=== PATIENT | female | born 1985 | race Caucasian/White ===

== ENCOUNTER → 2017-12-18 10:31 | Outpatient (CLI) | payer BC, SELFPAY ==
[2017-12-18 11:42] LABS: Alanine Aminotransferase 19 U/L (12-78); Albumin Level 4.2 gm/dL (3.4-5.0); Albumin/Globulin Ratio 1.5 (1.1-1.8); Alkaline Phosphatase 74 U/L (46-116); Anion Gap 12.1 mEq/L (5-15); Aspartate Amino Transferase 10 U/L (15-37); Bilirubin,Total 0.4 mg/dL (0.2-1.0); Blood Urea Nitrogen 6 mg/dL (7-18); Calcium 9.4 mg/dL (8.5-10.1); Carbon Dioxide 28 mmol/L (21.0-32.0); Chloride 106 mmol/L (98-107); Creatinine,Serum 0.71 mg/dL (0.55-1.02); Estimated Glomerular Filt Rate 95 ml/min (>60); GFR (African American) 115 ML/MIN (>60); Globulin 2.8 gm/dl (1.3-3.2); Glucose 105 mg/dL (74-106); Potassium 4.1 mmoL/L (3.5-5.1); Sodium 142 mmol/L (136-145); Thyroid Stimulating Hormone 1.44 uIU/ml (0.358-3.740)
== END ==
PROVIDERS: PCP Family Medicine; Visit Provider Family Medicine
DX: F31.62 Bipolar disorder, current episode mixed, moderate (principal)
CPT/HCPCS: 36415; 80053; 84443

== ENCOUNTER → 2021-07-06 16:49 | Outpatient (CLI) | payer OTHER, SELFPAY ==
--- NOTE | 2021-07-06 17:02 | ECG_ITS ---
APPROVED REPORT Exam: Resting ECG HR:98 bpm ECG Measurements Heart Rate 98 AXES MT 122 P 74 QRSd 94 QRS 89 QT 333 T 8 QTc 388 Conclusion SINUS RHYTHM WITH SINUS ARRHYTHMIA POSSIBLE RIGHT VENTRICULAR CONDUCTION DELAY [RSR (QR) IN V1/V2] NONSPECIFIC ST & T-WAVE ABNORMALITY BORDERLINE ECG UNCONFIRMED REPORT Electronically signed by : Ted Bray MD 07/09/2021 10:33:23
== END ==
PROVIDERS: PCP Family Medicine; Visit Provider Family Medicine
DX: R00.0 Tachycardia, unspecified (principal)
CPT/HCPCS: 93005

== ENCOUNTER → 2021-07-20 12:59 | Outpatient (CLI) | payer OTHER, SELFPAY ==
--- NOTE | 2021-07-20 13:03 | CA_ITS ---
APPROVED REPORT EXAM: Comprehensive 2D, Doppler, and color-flow Echocardiogram Displayer Merchandise: Ni Villegas RDCS Ht: 5 ft 11 in Wt: 126lbs BSA: 1.73 BP: 110/68 mmHg Indications: TACHYCARDIA 2D Dimensions LVOT 1.66 cm (M/F) 1.5-2.5 M-Mode Dimensions RVDd 2.78 cm (0.9-2.6) LA Diam 2.02 cm (1.9-4.0) LVDd 3.95 cm (3.5-5.7) Ao Diam 3.03 cm (2.0-3.7) LVDs 3.28 cm (3.5-5.7) IVSd 0.47 cm (0.6-1.1) PWd 0.57 cm (0.6-1.1) EF (Teich) 35.90% FS 17.00% EDV (Teich) 67.90 mL TAPSE 1.83 (<1.7) ESV (Teich) 43.50 mL LV Diastology E Decel Time 250.00 (160-240 msec) E/A Ratio 0.7 MED E' 12.40 (< 7 cm/sec) E'/MED E' Ratio 4.39 (>14) LAT E' 16.60 (<10 cm/sec) E/LAT E' Ratio 3.28 (>14) Mitral Valve MV E Max Michele. 54.00 (40-130 cm/s) MV A Velocity 76.00 (40-130 cm/s) E/A Ratio 0.72 MV Decel. Time 250.00 (160-240 ms) MV PHT 73.00 ms Left Ventricle Left atrium normal size, left ventricle is normal size, there is no concentric left ventricular hypertrophy, estimated ejection fraction 55% with no regional wall motion abnormality. Diastolic parameters are within normal range. Right Ventricle Right atrium and right ventricle are normal size and contractility. Aortic Valve Aortic valve is grossly normal and there is no aortic stenosis or aortic insufficiency. Mitral Valve Mitral valve is grossly normal, there is no mitral stenosis or mitral regurgitation. Tricuspid Valve Tricuspid valve grossly normal, there is trace tricuspid regurgitation, tricuspid regurgitation jet velocity is inadequate for calculation of the right ventricular systolic pressure. Pulmonic Valve Pulmonic valve is poorly visualized. Great Vessels Aortic root is normal size. Inferior vena cava is normal size with normal inspiratory collapse. Pericardium No significant pericardial effusion noted. Conclusion 1. Normal left ventricular size, preserved left ventricular systolic function, estimated ejection fraction 55% with no regional wall motion abnormality, diastolic parameters are within normal range. 2. Trace tricuspid regurgitation. 3. No significant pericardial effusion. 4. Inferior vena cava is normal size with normal inspiratory collapse. Electronically signed by : Juan Pelayo MD 07/21/2021 12:15:23
== END ==
PROVIDERS: PCP Family Medicine; Visit Provider Nurse Practitioner
DX: R00.0 Tachycardia, unspecified (principal)
CPT/HCPCS: 93225; 93226; 93306

== ENCOUNTER → 2022-02-11 13:57 | Outpatient (CLI) | payer OTHER, SELFPAY ==
[2022-02-11 19:00] LABS: Alanine Aminotransferase 18 U/L (12-78); Albumin Level 4.1 g/dl (3.5-5.0); Albumin/Globulin Ratio 1.8 (1.1-1.8); Alkaline Phosphatase 67 U/L (38-126); Anion Gap 13.1 mEq/L (5-15); Aspartate Amino Transferase 25 U/L (14-36); Bilirubin,Total 0.4 mg/dl (0.2-1.3); Blood Urea Nitrogen 8 mg/dl (7-17); Carbon Dioxide 26 mmol/L (22.0-30.0); Chloride 106 mmol/L (98-107); Estimated Glomerular Filt Rate 94 ml/min (>60); GFR (African American) 114 ML/MIN (>60); Globulin 2.3 g/dL (1.3-3.2); Glucose 83 mg/dl (74-100); Potassium 4.1 mmoL/L (3.5-5.1); Sodium 141 mmol/L (136-145); Total Protein,Serum 6.4 g/dl (6.3-8.2)
[2022-02-11 19:30] LABS: Thyroid Stimulating Hormone 0.89 uIU/mL (0.465-4.68)
== END ==
PROVIDERS: PCP Family Medicine; Visit Provider Family Medicine
DX: F31.9 Bipolar disorder, unspecified (principal)
CPT/HCPCS: 80053; 84443

== ENCOUNTER → 2022-09-29 16:15 | Outpatient (CLI) | payer OTHER, SELFPAY ==
[2022-09-29 10:59] LABS: Amphetamine/Metha Screen,Urine Negative ng/ml (<1000); Barbiturates Screen,Urine Negative ng/ml (<200)
[2022-09-29 11:00] LABS: Benzodiazepines Screen,Urine Negative ng/ml (<200)
[2022-09-29 11:01] LABS: Cannabinoid Screen,Urine Positive ng/ml (<50); Cocaine Screen,Urine Negative ng/ml (<300)
[2022-09-29 11:02] LABS: Methadone Screen,Urine Negative ng/ml (<300)
[2022-09-29 11:03] LABS: Opiate Screen,Urine Negative ng/ml (<300); Phencyclidine Screen,Urine Negative ng/ml (<25)
== END ==
PROVIDERS: Visit Provider Nurse Practitioner Psychiatric/Mental Health
DX: Z51.81 Encounter for therapeutic drug level monitoring (principal)
CPT/HCPCS: 80305

== ENCOUNTER → 2022-10-04 13:28 | Outpatient (CLI) | payer OTHER, SELFPAY ==
[2022-10-06 08:19] LABS: FSH 9.4 mIU/mL (.); LH 14.6 mIU/mL (.)
== END ==
PROVIDERS: PCP Family Medicine; Visit Provider Family Medicine
DX: E34.9 Endocrine disorder, unspecified (principal)
CPT/HCPCS: 83001; 83002

== ENCOUNTER → 2022-10-25 12:00 | Outpatient (CLI) | payer OTHER, SELFPAY | PROVIDERS: PCP Podiatrist; Visit Provider Podiatrist | DX: D49.2 Neoplasm of unspecified behavior of bone, soft tissue, and skin (principal) ==

== ENCOUNTER → 2022-12-13 08:51 | Outpatient (CLI) | payer OTHER, SELFPAY ==
[2022-12-13 18:42] LABS: Alanine Aminotransferase 19 U/L (12-78); Albumin Level 4.2 g/dl (3.5-5.0); Albumin/Globulin Ratio 1.8 (1.1-1.8); Alkaline Phosphatase 78 U/L (38-126); Anion Gap 10.2 mEq/L (5-15); Aspartate Amino Transferase 23 U/L (14-36); Bilirubin,Total 0.3 mg/dl (0.2-1.3); Blood Urea Nitrogen 6 mg/dl (7-17); Calcium 9.1 mg/dl (8.4-10.2); Carbon Dioxide 28 mmol/L (22.0-30.0); Chloride 106 mmol/L (98-107); Estimated Glomerular Filt Rate 94 ml/min (>60); GFR (African American) 113 ML/MIN (>60); Globulin 2.4 g/dL (1.3-3.2); Glucose 92 mg/dl (74-100); Potassium 4.2 mmoL/L (3.5-5.1); Sodium 140 mmol/L (136-145); Total Protein,Serum 6.6 g/dl (6.3-8.2)
[2022-12-13 19:11] LABS: Thyroid Stimulating Hormone 1.07 uIU/mL (0.465-4.68)
== END ==
PROVIDERS: PCP Family Medicine; Visit Provider Family Medicine
DX: F31.9 Bipolar disorder, unspecified (principal)
CPT/HCPCS: 80053; 84443

== ENCOUNTER 2023-09-12 10:28 | Outpatient (CLI) | payer OTHER, SELFPAY ==
[2023-09-12 18:20] LABS: Microscopic, Urine URINE MICROSCOPIC (MICROSCOPIC)
[2023-09-12 19:10] LABS: Appearance,Urine CLEAR (Clear); Bilirubin,Urine Negative (Negative); Blood, Urine TRACE-I (Negative); Color,Urine YELLOW (Yellow); Glucose,Urine (UA) TRACE (Negative); Ketones,Urine Negative (Negative); Leukocyte Esterase,Urine TRACE (Negative); Nitrate,Urine POSITIVE (Negative); PH,Urine 6.5 (5.0-8.5); Protein,Urine TRACE (Negative)
[2023-09-12 19:30] LABS: Bacteria,Urine Trace /lpf; RBC,Urine Occasional #/hpf (0-3)
[2023-10-04 11:49] LABS: Ammonium acid urate 0; Ca oxalate dihydrate 95; Calcium bilirubinate 0; Calcium carbonate 0; Calcium phosphate 5; Cholesterol 0; Composition PERCENTAGE; Magnesium ammon phos 0; Size 1X1; Sodium acid urate 0; Uric acid dihydrate 0
[2023-10-04 11:50] LABS: Photo SCANNED IMAGE
== END 2023-09-12 23:59 | disposition home or self-care (01) ==
LOC: LAB.DROPOF 09-13 10:28
PROVIDERS: PCP Family Medicine; Visit Provider Family Medicine
DX: N20.2 Calculus of kidney with calculus of ureter; F31.9 Bipolar disorder, unspecified
CPT/HCPCS: 81001; 82370; 87086

== ENCOUNTER 2023-09-20 10:36 | Outpatient (CLI) | payer OTHER, SELFPAY ==
[2023-09-21 12:00] LABS: HIV (1&2) Antibody Rapid NONREACTIVE (NONREACTIVE)
[2023-09-22 08:24] LABS: HCV Ab Non Reactive (Non Reactive); Hepatitis B Surface Antigen Negative (Negative)
[2023-09-22 11:28] LABS: Rapid Plasma Reagin Ab Titer Non Reactive titer (NonRea<1:1)
== END 2023-09-20 23:59 | disposition home or self-care (01) ==
LOC: LAB.DROPOF 09-21 10:36
PROVIDERS: PCP Obstetrics & Gynecology; Visit Provider Obstetrics & Gynecology
DX: Z20.2 Contact with and (suspected) exposure to infections with a predominantly sexual mode of transmission (principal)
CPT/HCPCS: 86803; 86703; 86593; 87340

== ENCOUNTER 2023-09-28 09:49 | Outpatient (CLI) | payer OTHER, SELFPAY ==
--- NOTE | 2023-09-28 09:50 | US_ITS ---
PROCEDURE: US TRANSVAGINAL CLINICAL INDICATION: iud in place strings not visable, enlarged uterus COMPARISON: No exams were available for comparison FINDINGS: Transvaginal sonographic images of the pelvis were obtained. UTERUS: 8.5cm x 4.8 cmx 4.1cm anteverted with a combined endometrial thickness of 3.5mm. There is an IUD within the uterine cavity in the correct position. LEFT OVARY: 2.6 cmx2.0cmx2.9cm with a volume of 7.8ml. There is a follicle measuring 1.6 cm x 1.6 x 1.5 cm RIGHT OVARY: 1.8 cmx 2.4cmx1.7 cm with a volume of 3.7ml. Both ovaries are seen and appear normal. Doppler flow to both ovaries are seen. There is no fluid in the cul-de-sac. IMPRESSION: 1. Anteverted uterus normal in shape and size. The endometrium is thin. 2. Within the endometrium there is an IUD that appears to be in the correct position. 3. Both ovaries are seen and appear normal. There is a 1.6 cm follicle in the left ovary. 4. No fluid in the cul-de-sac. Dictated by: Sudhir Butcher MD 09/29/2023 07:53 Sudhir Butcher MD in OV 09/29/2023 07:53
== END 2023-09-28 23:59 | disposition home or self-care (01) ==
LOC: RAD 09:50
PROVIDERS: PCP Family Medicine; Visit Provider Obstetrics & Gynecology
DX: Z97.5 Presence of (intrauterine) contraceptive device (principal); N85.2 Hypertrophy of uterus
CPT/HCPCS: 76830

== ENCOUNTER 2024-03-19 09:05 | Outpatient (CLI) | payer OTHER, SELFPAY ==
[2024-03-19 19:01] LABS: T4 (Thyroxine) 7.8 ug/dl (5.53-11.0)
[2024-03-19 19:15] LABS: Thyroid Stimulating Hormone 0.56 uIU/mL (0.465-4.68)
== END 2024-03-19 23:59 | disposition home or self-care (01) ==
LOC: LAB.DROPOF 03-20 09:06
PROVIDERS: PCP Nurse Practitioner Acute Care; Visit Provider Nurse Practitioner Acute Care
DX: E34.9 Endocrine disorder, unspecified (principal)
CPT/HCPCS: 84436; 84443

== ENCOUNTER 2024-03-21 14:30 | Outpatient (CLI) | payer OTHER, SELFPAY ==
[2024-03-21 19:30] LABS: RPR W/RFX Titers Nonreactive (Nonreactive)
[2024-03-21 21:31] LABS: HIV Combo Retest NEGATIVE (Negative)
[2024-03-23 06:35] LABS: HBsAg Screen Negative (Negative); HCV Ab Non Reactive (Non Reactive); Hep A Ab, IGM Negative (Negative); Hep B Core Ab, IgM Negative (Negative)
[2024-03-26 09:13] LABS: HSV-1 DNA Negative (Negative); HSV-2 DNA Negative (Negative)
[2024-03-27 10:22] LABS: Mycoplasma genitalium, NAA Negative (Negative); Neisseria gonorrhoeae, NAA Negative (Negative); Trich vag by NAA Negative (Negative)
== END 2024-03-21 23:59 | disposition home or self-care (01) ==
LOC: LAB.DROPOF 03-22 12:37
PROVIDERS: PCP Nurse Practitioner; Visit Provider Nurse Practitioner
DX: Z11.3 Encounter for screening for infections with a predominantly sexual mode of transmission (principal)
CPT/HCPCS: 80074; 86592; 87491; 87529; 87563; 87591; 87661

== ENCOUNTER 2024-04-26 11:55 | Outpatient (CLI) | payer OTHER, SELFPAY ==
--- NOTE | 2024-04-26 12:18 | ECG_ITS ---
APPROVED REPORT Exam: Resting ECG HR:69 bpm ECG Measurements Heart Rate 69 AXES AL 131 P 74 QRSd 93 QRS 86 QT 382 T -43 QTc 401 Conclusion SINUS RHYTHM POSSIBLE RIGHT VENTRICULAR CONDUCTION DELAY [RSR (QR) IN V1/V2] ST DEVIATION AND MODERATE T-WAVE ABNORMALITY, CONSIDER ANTEROLATERAL ISCHEMIA [-0.1+ mV T-WAVE IN V3-V6] ST DEVIATION AND MODERATE T-WAVE ABNORMALITY, CONSIDER INFERIOR ISCHEMIA [-0.1+ mV T-WAVE IN II/aVF] ABNORMAL ECG UNCONFIRMED REPORT Electronically signed by : Ted Bray MD 04/29/2024 08:53:06
[2024-04-26 12:35] LABS: Basophils % 0.4 % (0.1-2.0); Eosinophils # 0.1 K/mm3 (0.0-0.4); Eosinophils % 1.5 % (0.1-12.0); Hematocrit 35.8 % (37.0-47.0); Hemoglobin 11.9 g/dL (12.2-16.2); Lymphocytes # 1.9 K/mm3 (0.7-4.5); Lymphocytes % 26.6 % (10-50); Mean Corpuscular HGB Conc 33.2 g/dL (31.8-35.4); Mean Corpuscular Volume 84.2 fl (81-99); Mean Platelet Volume 9.7 fl (7.4-10.4); Monocytes # 0.4 K/mm3 (0.1-1.0); Monocytes % 5.6 % (1.7-9.3); Neutrophils # 4.8 K/mm3 (1.8-7.8); Neutrophils % 65.5 % (37.0-80.0); Platelet Count 249 K/mm3 (142-424); Red Blood Count 4.25 M/mm3 (4.20-5.40); Red Cell Distribution Width 12.9 % (11.5-17.5); White Blood Count 7.3 K/mm3 (4.8-10.8)
[2024-04-26 12:40] LABS: Albumin Level 4.6 g/dl (3.5-5.0); Chloride 109 mmol/L (98-107); Potassium 3.6 mmoL/L (3.5-5.1); Sodium 140 mmol/L (136-145)
[2024-04-26 12:43] LABS: Alanine Aminotransferase 21 U/L (12-78); Albumin/Globulin Ratio 2.1 (1.1-1.8); Alkaline Phosphatase 83 U/L (38-126); Anion Gap 8.6 mEq/L (5-15); Aspartate Amino Transferase 26 U/L (14-36); Bilirubin,Total 0.2 mg/dl (0.2-1.3); Blood Urea Nitrogen 5 mg/dl (7-17); Carbon Dioxide 26 mmol/L (22.0-30.0); Estimated Glomerular Filt Rate 80 ml/min (>60); GFR (African American) 97 ML/MIN (>60); Globulin 2.2 g/dL (1.3-3.2); Total Protein,Serum 6.8 g/dl (6.3-8.2)
[2024-04-26 12:44] LABS: Glucose 98 mg/dl (74-100)
[2024-04-26 13:05] LABS: HCG,Quantitative < 2 mIU/ml (0-5.42)
== END 2024-04-26 23:59 | disposition home or self-care (01) ==
LOC: PREOP 11:56
PROVIDERS: PCP Family Medicine; Visit Provider Obstetrics & Gynecology
DX: R94.31 Abnormal electrocardiogram [ECG] [EKG] (principal); R10.2 Pelvic and perineal pain
CPT/HCPCS: 80053; 84702; 85025; 93005

== ENCOUNTER 2024-05-01 09:23 | Outpatient (CLI) | payer OTHER, SELFPAY ==
--- NOTE | 2024-05-01 09:27 | CA_ITS ---
APPROVED REPORT EXAM: Comprehensive 2D, Doppler, and color-flow Echocardiogram Slat Basket Maker Machine: Katie Carlson RVT Ht: 5 ft 11 in Wt: 142lbs BSA: 1.82 BP: 120/79 mmHg Indications: ABN EKG,PRE-OP,CP,? [facility]AN[place] SYNDROME M-Mode Dimensions RVDd 2.50 cm (0.9-2.6) LA Diam 2.43 cm (1.9-4.0) LVDd 3.66 cm (3.5-5.7) LVDs 2.69 cm (3.5-5.7) IVSd 0.63 cm (0.6-1.1) PWd 0.47 cm (0.6-1.1) EF (Teich) 52.70% FS 26.50% EDV (Teich) 56.60 mL TAPSE 2.67 (<1.7) ESV (Teich) 26.80 mL LV Diastology E Decel Time 150 (160-240 msec) E/A Ratio 1.0 Aortic Valve AG Index 1.46 cm2/m2 AoV Peak Michele. 121.0 (50-130 cm/s) AO Peak GR. 5.90 mmHg AO Mean GR. 3.60 (<5 mmHg) AO VTI 23.5 (18-25 cm) AG (VTI) 2.73 (2.5-4.5 cm2) Mitral Valve MV E Max Michele. 60.0 (40-130 cm/s) MV A Velocity 63.0 (40-130 cm/s) E/A Ratio 0.95 MV PHT 44.0 ms Pulmonary Valve PV Peak Velocity 92.0 (50-150 cm/s) Tricuspid Valve TR P. Velocity 274.00 cm/s RAP Estimate 10.00 mmHg RVSP 40.00 mmHg Left Ventricle The left ventricle is normal size. The left ventricular systolic function is normal. The left ventricular ejection fraction is within the normal range. There is normal left ventricular wall thickness. There is normal LV segmental wall motion. The left ventricular diastolic function is normal. LVEF is 55%. Right Ventricle The right ventricle is normal size. The right ventricular systolic function is normal. Atria The left atrium size is normal. The right atrium size is normal. The interatrial septum is not well-visualized. Aortic Valve The aortic valve is normal in structure. There is no aortic valvular stenosis. The aortic valve opens well. Mitral Valve The mitral valve is normal in structure. Trace mitral regurgitation. No evidence of mitral valve stenosis. Tricuspid Valve Tricuspid valve is grossly normal in structure and function. Trace tricuspid regurgitation. There is insufficient TR jet to estimate RVSP. Pulmonic Valve The pulmonary valve is normal in structure. Trace pulmonic regurgitation. Great Vessels The aortic root is normal in size. The ascending aorta is normal in size. IVC is normal in size and collapses >50% with inspiration. Pericardium There is no pericardial effusion. Other Information Study Quality: Fair Conclusion Normal biventricular systolic function. No significant valvular stenosis or regurgitation. Electronically signed by : Shakira Das MD 05/14/2024 12:25:54
== END 2024-05-01 23:59 | disposition home or self-care (01) ==
LOC: RT 09:24
PROVIDERS: PCP Family Medicine; Visit Provider Physician Assistant
DX: Z01.810 Encounter for preprocedural cardiovascular examination (principal); R07.9 Chest pain, unspecified; R94.31 Abnormal electrocardiogram [ECG] [EKG]; Z82.49 Family history of ischemic heart disease and other diseases of the circulatory system
CPT/HCPCS: 93306

== ENCOUNTER 2024-05-02 12:53 | Outpatient (CLI) | payer OTHER, SELFPAY ==
--- NOTE | 2024-05-02 | CA_ITS ---
APPROVED REPORT Exam: Exercise Treadmill Technologist: Ngozi Chavez Ht: 5 ft 11 in Wt: 142 lbs BSA: 1.82 m2 HR: 84 bpm BP: 119/77 mmHg Medical History Medications: Auvelity, Vistaril, Lamictal, Mirena, Latuda, Oxazepam Allergies: Iodinated Contrast Cardiac Risk Factors: FHX of CAD Stress Test Details Test: Exercise stress testing was performed using a Ciro protocol. HR Resting HR: 84 bpm Max Heart Rate (APMHR): 181 bpm Max HR Achieved: 167 bpm Target HR (85% APMHR): 154 bpm % of APMHR: 92 Recovery HR: 100 bpm HR response to stress: Normal HR response to stress BP Resting BP: 119.0/77.0 mmHg Max BP: 164.0/83.0 mmHg Recovery BP: 121.0/76.0 mmHg BP response to stress: Normal blood pressure response to stress. ECG Resting ECG: NSR Stress EC.[address] depression Clinical Exercise duration: 4:50 min Exercise capacity: 7.1 METs Overall Exercise Capacity for Age: Fair Stress ECG Conclusion The patient was able to exercise for a total of 4 minutes, 50 seconds. She achieved a total of 7.1 METS. Fair exercise capacity compared to age and sex matched peers. Ectopy: None ST changes: 1.[address] depression. Conclusion: Fair exercise capacity. ECG changes suggestive of ischemia at peak stress. Myoview images are reported separately. Electronically signed by : Shakira Das MD 05/05/2024 21:27:01
--- NOTE | 2024-05-02 12:57 | NM_ITS ---
APPROVED REPORT Exam: Nuclear Stress Test Indication: Chest pain, SOB, Fatigue, Family history Patient Location: Outpatient Stress Tech: Ngozi Chavez ND Tech:Clara HenaoCHHAYA RT(R)(N) Ht: 5 ft 11 in Wt: 140 lbs Bra Size: 34C HR: 104 bpm BP: 118/79 mmHg BSA: 1.81 m2 TID: 1.01 BMI: 19.5 History: Chest pain, SOB, Fatigue, Family history Procedure: Patient exercised on Ciro protocol 4:50 minutes and sec, resting heart rate 104 bpm, resting blood pressure 118/79 mmHg, with exercise maximum heart rate achived was 167 bpm which is 92 % of the maximum predicted heart rate and blood pressure was 156/81 mmHg. Test was stopped due to SOB. Patient denied any complaint of chest pain. Patient has Average exercise capacity, achieved 7.1 METs of workload on treadmill, the blood pressure response to exercise was Blunted. Cardiac Stress and Resting SPECT Images: Cardiac Stress and Resting SPECT images were obtained using technetium 99m Myoview 31.7 mCi stress and 10.11 mCi at rest. Resting and stress imaging in supine and prone positions demonstrate no evidence of fixed or reversible perfusion defects. Gated imaging demonstrates normal global and regional LV systolic function. LVEF is calculated at 52%. Conclusion: No evidence of fixed or reversible perfusion defects. Gated imaging demonstrates normal global and regional LV systolic function. LVEF is calculated at 52%. Of note, the patient had a blunted BP response to exercise. Electronically signed by : Shakira Das MD 05/05/2024 21:17:09
[2024-05-02] MEDS: ISOTOPE MYOVIEW (PER STUDY) 1 DOSE IV (14:49)
[2024-05-02] MEDS: SODIUM CHLORIDE 0.9% 10ML SYR (RAD ONLY) 10 ML IV ×2 (14:50)
== END 2024-05-02 23:59 | disposition home or self-care (01) ==
LOC: RAD 12:54
PROVIDERS: PCP Psychiatry & Neurology Sleep Medicine; Visit Provider Physician Assistant
DX: R07.9 Chest pain, unspecified (principal); R94.31 Abnormal electrocardiogram [ECG] [EKG]; Z82.49 Family history of ischemic heart disease and other diseases of the circulatory system
CPT/HCPCS: 78452; 93017; 93018; A9502

== ENCOUNTER 2024-07-09 11:55 | Outpatient (CLI) | payer OTHER, SELFPAY ==
[2024-07-09 13:16] LABS: Basophils % 0.2 % (0.1-2.0); Eosinophils # 0.1 Kmm3 (0.0-0.4); Eosinophils % 1.3 % (0.1-12.0); Hemoglobin 11.8 g/dL (12.2-16.2); Immature Granulocytes # 0.03 10^3uL; Immature Granulocytes % 0.4 %; Lymphocytes # 2.3 K/mm3 (0.7-4.5); Lymphocytes % 27.1 % (10-50); Mean Corpuscular HGB Conc 32.8 g/dL (31.8-35.4); Mean Corpuscular Volume 85.3 fl (81-99); Mean Platelet Volume 9.6 fl (7.4-10.4); Monocytes # 0.4 K/mm3 (0.1-1.0); Monocytes % 4.5 % (1.7-9.3); Neutrophils # 5.7 K/mm3 (1.8-7.8); Neutrophils % 66.5 % (37.0-80.0); Nucleated Red Blood Cells # 0 10^3/uL; Nucleated Red Blood Cells % 0 %; Platelet Count 314 K/mm3 (142-424); Red Blood Count 4.22 M/mm3 (4.20-5.40); Red Cell Distribution Width 12.7 % (11.5-17.5); Red Cell Distribution Width-SD 39.2 fL; White Blood Count 8.5 K/mm3 (4.8-10.8)
[2024-07-09 13:42] LABS: HCG Qualitative, Serum Negative (Negative)
[2024-07-10 09:09] LABS: Alanine Aminotransferase 9 U/L (12-78); Alkaline Phosphatase 87 U/L (38-126); Aspartate Amino Transferase 14 U/L (14-36); Bilirubin,Total 0.3 mg/dl (0.2-1.3); Calcium 8.9 mg/dl (8.4-10.2); Chloride 107 mmol/L (98-107); Glucose 83 mg/dl (74-100); Potassium 4.4 mmoL/L (3.5-5.1); Sodium 140 mmol/L (136-145)
[2024-07-10 09:11] LABS: Albumin/Globulin Ratio 1.7 (1.1-1.8); Anion Gap 8.4 mEq/L (5-15); Blood Urea Nitrogen 8 mg/dl (7-17); Carbon Dioxide 29 mmol/L (22.0-30.0); Estimated Glomerular Filt Rate 80 ml/min (>60); GFR (African American) 97 ML/MIN (>60); Globulin 2.3 g/dL (1.3-3.2); Total Protein,Serum 6.3 g/dl (6.3-8.2)
== END 2024-07-09 23:59 | disposition home or self-care (01) ==
LOC: PREOP 11:56
PROVIDERS: PCP Family Medicine; Visit Provider Obstetrics & Gynecology
DX: Z01.812 Encounter for preprocedural laboratory examination (principal)
CPT/HCPCS: 36415; 80053; 84703; 85025; 86850

== ENCOUNTER 2024-07-10 08:16 | Day surgery (SDC) | payer OTHER, SELFPAY ==
[2024-04-26 12:41] VITALS: BMI 19.0
[2024-07-10] VITALS (17 sets, daily range): BP systolic 118–133; BP diastolic 67–88; PULSE 67–110; RESP 16–24; TEMP 36.2–36.8; O2SAT 96–100
[2024-07-10] MEDS: GABAPENTIN 300MG CAPSULE 600 MG (09:22)
[2024-07-10] MEDS: LACTATED RINGERS 1000ML 1,000 ML 25 ML IV (09:23)
[2024-07-10] MEDS: ACETAMINOPHEN 500MG TAB 1000 MG PO (09:23)
--- NOTE | 2024-07-10 09:29 | EXP.ANES.CKL ---
[facility] Disclaimer: The information contained in this section may have been updated after the patient was seen, as this information can be updated by other users. Medical History Encounter for other preprocedural examination Encounter for pre-operative cardiovascular clearance Family history of ischemic heart disease Abnormal electrocardiogram [ECG] [EKG] Renal and ureteric calculus Hormone imbalance Neoplasm of skin of forearm Attention deficit disorder (ADD) in adult Sinus tachycardia Bipolar depression Anxiety IUD (intrauterine device) in place Surgical History (Updated 07/09/24 @ 12:37 by Rosita Mckay RN) H/O breast augmentation History of incision and drainage History of wisdom tooth extraction History of tonsillectomy Family History Other Family history of breast cancer Heart attack Social History Smoking Status: Never smoker second hand exposure: No alcohol intake: never counseling given: No substance use type: marijuana and other details: edibles counseling given: No current occupational status: unemployed Travel in the last 8 weeks?: None adopted: No caregiver/support person: Yes (for her kids) household members: spouse housing: house marital status: number of children: 5 number of grandchildren: 0 education level: other details: she went to [employer]; for a semester; didn't do well attendance [employer]; and quit Hx Recent Travel: Yes ([place] for Spring break with her kids) out of state: Yes out of country: No sexually active: Yes are you practicing safe sex: Yes caffeine: Yes physical activity: none brandi/hoahaoism: None special brandi needs: No working smoke detector in home: Yes fire extinguisher in home: Yes carbon monox detector in home: Yes firearms in home: Yes firearms unloaded and locked: Yes do you feel safe at home: Yes victim of physical abuse: No victim of emotional abuse: No victim of sexual abuse: No would you like helpful sources: No Have you lived/traveled outside US in past 30 days?: No Contact w/someone who lives/traveled outside US past 30 days?: No Exposure to someone with infectious disease in past 14 days?: No Do you have a fever (greater than 100.4 F or 38 C)?: No Have you tested positive for COVID-19?: No Exposed to someone with COVID-19 in past 14 days?: No Do you have a sore throat?: No Do you have a cough?: No Do you have any weakness?: No Do you have any diarrhea?: No Are you experiencing any unusual bleeding?: No Do you have any muscle aches/pain?: No Do you have any abdominal pain?: No Are you experiencing loss of taste or smell?: No [facility] Anesthesia Checklist Patient Identification Patient Identification: Arm Band Structural Data Admitted From: Home Planned Operative Procedure/s: Total Vaginal Hysterectomy Consent for Planned Operative Procedure(s) Verified: Yes Verified Documents: Surgical Consent and History and Physical NPO Status Verified Time NPO: 00:00 Additional verifications Anesthesia Reactions: No Airway Assessment Mallampati Score:: Class II C-Spine Mobility Assessed: Yes TMJ Mobility Assessed: Yes Dentition: Good Dentition Neurological Assessment Level of Consciousness: Awake, Alert and Appropriate Anesthesia Plan Anesthesia Risk discussed: Yes Anesthesia Plan: Verified ASA Class: II Anesthesia Type: General
[2024-07-10] MEDS: METRONIDAZ/SOD CHL 500 MG/100 ML PIGGYBACK 100 MG IV (09:45)
[2024-07-10] MEDS: CEFAZOLIN SODIUM 2 GM in 0.9 % SODIUM CHLORIDE 100 ML IV (09:50)
[2024-07-10] MEDS: SODIUM CHLORIDE IRRIG SOLUTION 3,000 ML 25 ML IR (10:05)
[2024-07-10] MEDS: METHYLENE BLUE 0.5% 10ML AMPULE 50 MG IV (10:05)
[2024-07-10] MEDS: LIDOCAINE 1% W/EPI 1:100,000 20ML VIAL 20 ML (10:05)
--- NOTE | 2024-07-10 11:34 | P.OP_ITS ---
Date of procedure: 07/10/24 Pre-op Diagnosis:: 1. Abnormal uterine bleeding 2. Heavy uterine bleeding 3. Prolonged menses 4. Failed medical management 5. Anxiety Post-op Diagnosis:: 1. Abnormal uterine bleeding 2. Heavy uterine bleeding 3. Prolonged menses 4. Failed medical management 5. Anxiety Procedure performed:: 1. Total vaginal hysterectomy 2. Bilateral salpingectomy 3. Cystoscopy Surgeon:: Keisha Irene DO Employee Placement Specialist(s):: Sudhir Butcher MD [employer]:: Kanu Chapa Anesthesia: GETA Estimated blood loss (mL): 50 Clinical Note:: Steffany Lozoya is a 38-year-old -0-1-5 who presented for definitive sorenson rgical management abnormal uterine bleeding, heavy uterine bleeding, prolonged menses. She has previously failed medical management and declined any additional hormonal use. Transvaginal ultrasound was within normal limits Operative findings:: Uterine EUA was significant for 8wk size uterus with regular borders at the fundus. Grade 3 uterine descent was appreciated. No gross adnexal masses were appreciated. Operative note:: Pt was taken back to the OR where GETA was obtained without difficulty. SCDs were placed and found to be working. The patient was placed in dorsal lithotomy position using yellowfin stirrups. The vagina was prepped and draped in the normal sterile fashion. An in and out catheter was used to drain the bladder and 20 mL of methylene blue normal saline were inserted into the bladder. A weighted speculum and [place] were used to visualize the cervix. Two Torres tenaculums were used to grasp the anterior and posterior ectocervix. Local with epinephrine was used to inject circumferentially around the cervicovaginal junction to better hydrodissect and delineate the planes as well as for added hemostasis. A scalpelwas used to make a circumferential incision. A raytec was used to bluntly dissect the paracervical fascia from the cervix off the vaginal mucosa. Metzenbaum scissors and pickups were used to enter the colpotomy posteriorly and a long weighted speculum was placed. Abdominal entry was confirmed by the presence of the ovary and omentum. The left uterosacral ligament was grasped with a Glenner clamp, cut, and suture ligated with 0- Vicryl. This was tagged for later incorporation to the cuff. This process was repeated on the contralateral side. The anterior vaginal tissue was further dissected off the cervix. Pickups and Metzenbaum scissors were used to make the anterior colpotomy. A [place] retractor was placed. Entry to the abdominal cavity was confirmed with the presence of omentum and the left ovary was visualized. The Enseal was used to dissect the broad ligament down the lateral aspect of the uterine body on the left side. The cardinal ligaments and uterine vessels were identified bilaterally, grasped with the Enseal, coagulated and transected. This process was repeated on the right. The utero-ovarian ligament was clamped, coagulated and transected on the left. At this time there was only a very small amount of the broad ligament and the round ligament noted to be attached on the right. The Enseal was used to take this down. The uterus was free and removed from the vagina, passed off the operative field and sent to pathology for evaluation. The right fallopian tube was grasped with an Allis. A sponge stick was placed to create a safe distance from the bowel and the Enseal was used to transect the mesosalpinx. Hemostasis noted. Fallopian tube passed off the operative field. This process was repeated with the left fallopian tube and the tube was passed off the field for further evaluation by pathology. The posterior peritoneum was fixed to the posterior vaginal cuff with a running locking 0 Vicryl stitch. 0-PDS was used to place a Purcell stitch for the culdoplasty, incorporating the bilateral uterosacral ligaments. The anterior peritoneum was grasped with an Rosario clamp and pursestringed closed. The vaginal cuff was then closed with 0 Vicryl in a running locking fashion. Purcell culdoplasty was tied to suspend the apex of the vagina. Hemostasis was noted. Cystoscopy Cystoscopy was performed with a 70 degree cystoscope and distended with normal saline. Inspection of the bladder showed a normal-looking, blue dyed, smooth bladder mucosa with no evidence of injury, suture, puckering, or other abnormalities.? Both ureteral meatuses were visualized and were noted to be expelling urine in routine fashion.? Air bubble was noted at the dome. Cystoscope was removed. Sponge, instrument and needle counts were correct x3, per nursing. The patient was awakened from general anesthesia and transferred to the PACU in stable condition. Condition: stable Disposition: same day Specimens:: Uterine body, cervix, bilateral fallopian tubes Complications:: None
--- NOTE | 2024-07-10 11:40 | P.PNANES_ITS ---
[facility] Anesthesia Record Part I Anesthesia Record I Intake, IV Amount: 900 Hydration: Adequate Estimated blood loss (mL): 50 Urine output (mL): 0 Blood Products used (#): none Blood Pressure: 123/72 SaO2: 96 Pulse Rate: 101 Airway Patency: Patent Respiratory Rate: 24 Temperature: 98.1 F Patient is:: Drowsy and Stable Stable to PACU at:: 11:30
[2024-07-10] MEDS: MORPHINE 2MG/ML SYRINGE 1 MG IV ×3 (12:00→12:10)
[2024-07-10] MEDS: HYDROMORPHONE 2MG/ML SYRINGE 1 MG IV (12:30)
--- NOTE | 2024-07-10 17:05 | SUR.PHASEII ---
[id number]- Dr. Butcher notified the pt was able to void 300mls and would like to go home. T.O per Dr. Butcher to D/C the pt home
--- NOTE | 2024-07-10 19:21 | EXP.ACUTE.PN ---
Subjective *Date: 07/10/24 *Time: 19:21 Interval history: We were planning on she was unable to void postsurgery and as result of that we were planning to keep her overnight with a Blas catheter. However after few hours in recovery she was able to void and requested to go home. Medical Exam Vital signs and Labs for Last 24 Hours: Vital Signs Temp Pulse Pulse Resp BP BP Pulse Ox 07/10/24 14:35 67 16 122/88 99 07/10/24 14:03 88 18 118/71 100 07/10/24 13:35 98 H 16 121/74 100 07/10/24 13:05 98 H 18 133/81 100 07/10/24 12:50 88 16 128/76 100 07/10/24 12:35 97.1 F L 100 H 18 131/85 100 07/10/24 12:30 98.2 F 100 H 18 97 07/10/24 12:20 98.2 F 102 H 18 99 07/10/24 12:10 98.2 F 101 H 18 125/82 99 07/10/24 12:00 98.2 F 108 H 18 121/67 98 07/10/24 11:50 98.2 F 110 H 18 129/77 97 07/10/24 11:44 98.1 F 101 H 24 123/72 07/10/24 11:40 98.2 F 109 H 18 125/73 97 07/10/24 11:30 98.2 F 107 H 18 123/72 96 07/10/24 09:24 97.4 F L 75 17 121/69 97 O2 Del Method 07/10/24 14:35 Room Air 07/10/24 14:03 Room Air 07/10/24 13:35 Room Air 07/10/24 13:05 Room Air 07/10/24 12:50 Room Air 07/10/24 12:35 Room Air 07/10/24 12:30 Room Air 07/10/24 12:20 Room Air 07/10/24 12:10 Room Air 07/10/24 12:00 Room Air 07/10/24 11:50 Room Air 07/10/24 11:44 07/10/24 11:40 Room Air 07/10/24 11:30 Room Air 07/10/24 09:24 Room Air Intake and Output 07/10/24 07/10/2425 03:59 11:59 19:59 Intake Total 900 / 900 Balance 900 / 900 Intake: Intake, Total IV Amount 900 / 900 I & O for Labs for Last 24 Hours: Intake & Output 07/08/24 07/09/24 07/10/24 07/11/24 11:59 11:59 11:59 11:59 Intake Total 900 / 900 Balance 900 / 900 Assessment and Plan *Assessment and plan (1) Postoperative urinary retention: Status: Acute Category: Medical Code(s): N99.89 - Other postprocedural complications and disorders of genitourinary system; R33.8 - Other retention of urine Plan She was not able to initially void postoperatively. We had planned to admit her overnight for catheterization as necessary. However she was able to spontaneously void and felt well. She requested to go home and as a result of that we are sending her home.
--- NOTE | 2024-07-10 19:31 | SUR.PHASEII ---
Dr. Butcher notifed pt was able to void and would really like to go home. T.O per Dr. Butcher to D/C the pt home
--- NOTE | 2024-07-11 08:20 | P.PNANES_ITS ---
[facility] Anesthesia Record Part II Anesthesia Record Part II Discharge Time: 17:23 Destination: Surgical Day Care (OP Surgery) PACU nurse assessment reviewed?: Yes Patient Condition:: Good Anesthesia Complications:: None Swallowing reflex intact?: Yes Airway Patency: Patent Cyanosis?: No Blood Pressure: 130/77 SaO2: 96 Respiratory Rate: 18 Pulse Rate: 101 Temperature: 98.2 F Mental Status: Alert & Oriented Pain level:: 0 Nausea and/or vomitting:: None Intake, IV Amount: 0 Hydration: Adequate
[2024-07-11 08:21] VITALS: BP 130/77; PULSE 101; RESP 18; TEMP 36.8; O2SAT 96
== END 2024-07-10 17:23 | disposition home or self-care (01) ==
PROVIDERS: PCP Nurse Practitioner; Visit Provider Obstetrics & Gynecology
PROC: (CPT 58262; principal; 2024-07-10 09:45)
DX: N93.9 Abnormal uterine and vaginal bleeding, unspecified (principal); N84.1 Polyp of cervix uteri; N88.8 Other specified noninflammatory disorders of cervix uteri; N99.89 Other postprocedural complications and disorders of genitourinary system; R33.8 Other retention of urine; F41.1 Generalized anxiety disorder; Z97.5 Presence of (intrauterine) contraceptive device; Z91.041 Radiographic dye allergy status; Z79.899 Other long term (current) drug therapy
CPT/HCPCS: 58262; J0690; J1100; J1171; J1596; J1885; J2250; J2270; J2405; J3010; J7120

== ENCOUNTER 2024-09-24 11:30 | Outpatient (CLI) | payer OTHER, SELFPAY ==
[2024-09-24 18:15] LABS: Hepatitis C Ab Qual. W/ RFX NEGATIVE (Negative)
[2024-09-25 11:12] LABS: Hepatitis B Surface Antigen Negative (Negative)
--- OUTSIDE RECORDS SUMMARY | 2024-09-25 11:56 | XMS_ITS | Clinical Summary ---
Author Organization Healthcare Address [address] [place] [address] Care Team Providers Care Food Packer Name Role Phone Asim Loza MD Primary Care Provider [phone] Jeanie Guzman LEATHER FITTER Unavailable [phone] Padma Vazquez RN Unavailable Unavailable Lisha Contreras RN Unavailable Unavailable Ihsan Parks MD Unavailable Family History Medical History Relation Name Comments Coronary artery disease Father Cataracts Other 1 Macular degeneration Other 2 Aortic aneurysm Paternal Grandfather Coronary artery disease Paternal Grandfather Relation Name Status Comments Father Other 1 Other 2 Paternal Grandfather Social History Tobacco Use Types Packs/Day Years Used Date Smoking Tobacco: Never Alcohol Use Standard Drinks/Week Comments Yes 0 (1 standard drink = 0.6 oz pur e alcohol) Comments Unknown Sex and Gender Information Value Date Recorded Sex Assigned at Not on file Legal Sex Female 8:19 PM EDT Gender Identity Not on file Sexual Orientation Not on file Last Filed Vital Signs Vital Sign Reading Time Taken Comments Blood Pressure - - Pulse - - Temperature - - Respiratory Rate - - Oxygen Saturation - - Inhaled Oxygen Concentration - - Weight 50.4 kg (111 lb 1.8 oz) 01/01/2016 12:37 PM EST Height 176.9 cm (5' 9.65 ) 01/01/2016 12:[address] Body Mass Index 16.11 01/01/2016 12:37 PM EST Plan of Treatment Not on file Care Teams Food Packer Relationship Specialty Start Date End Date Asim Loza MD [address] [place] [address] PCP - General 06/26/20 Jeanie Guzman APRN [address] [place] [address] Nurse Practitioner Internal Medicine 09/14/21 Padma Vazquez, RN [facility] Registered Nurse Cardiology 09/14/21 Lisha Contreras RN [facility] Registered Nurse 11/08/21 Ihsan Parks MD [address] [place] [address] Consulting Physician Pediatric Cardiology 12/16/21
--- OUTSIDE RECORDS SUMMARY | 2024-09-25 11:56 | XMS_ITS | Clinical Summary ---
Author Organization [facility] Address [address] [place] [address] Phone Care Team Providers Care Polisher Implant Name Role Phone Unavailable Primary Care Provider Unavailabl e Allergies Active Allergy Reactions Criticality Noted Date Comments Adhesive Other (See Comments) 11/30/2016 [place] skin, she does okay with tegaderm Iodine Anaphylaxis High 03/25/[address] Medications * This document contains information received from the source organization and may not represent a complete record from that organization. cetirizine (ZYRTEC) 10 mg Oral Tablet Take by mouth daily. Active minocycline (MINOCIN;DYNACIN ) 100 mg Oral Capsule Take 100 mg by mouth daily. Active ALPRAZolam (XANAX) 0.5 mg Oral Tablet Take 0.25 mg by mouth 2 times daily. Active Active Problems Patient Care Coordination No te Formatting of this note migh t be different from the original. 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 Scar adherent 05/28/2018 Facial abscess 11/30/2016 delivery 10/12/2011 Immunizations Immunization Administration Dates Next Due Influenza Seasonal Injectable PF 12/21/2013 Influenza Vaccine Quadrivalent PF 12/02/2016 Tdap 10/12/2011 Surgical History Surgery Date Site/Laterality Comments TONSILLECTOMY CYST REMOVAL from right wrist , age 15 FACIAL RECONSTRUCTION SURGERY 11/30/2016 N/A incision and drainge chin abscess; Surgeon: Josh Fox MD; Location: ED MAIN OR; Service: ENT URETEROSCOPY 09/05/2017 Ureter/Right CYSTOSCOPY RIGHT URETEROSCOPY,RIGHT URETER BALLOON DILATION STENT INSERTION BASKET STONE RETRIEVAL; Surgeon: Joe Chris MD; Location: [facility] MAIN OR; Service: Urology Medical devices from this surgery are in the Medical Devices section. CYSTOSCOPY 09/05/2017 Surgeon: Joe Chris MD; Location: [facility] MAIN OR; Service: Urology Medical devices from this surgery are in the Medical Devices section. WISDOM TOOTH EXTRACTION wisdom teeth out , age 17 FACIAL RECONSTRUCTION SURGERY 05/28/2018 N/A EXCISION OF CHRONIC CYSTIC ACNE SCAR WITH FLAP CLOSURE; Surgeon: Asim Powers MD; Location: [facility]; Service: Plastics DENTAL SURGERY wisdom teeth removal BREAST ENHANCEMENT SURGERY 08/07/2018 Breast/Bilater al BILATERAL BREAST AUGMENTATION, SILICONE; Surgeon: Asim Powers MD; Location: [facility]; Service: Plastics Medical devices from this surgery are in the Medical Devices section. Medical History Medical History Date Comments Anxiety History of kidney stones Anemia taking iron Depression seeing psychiatr ist and no longer taking medication Urinary tract infection Chronic kidney disease freqyent kidney stones Motion sickness Family History Medical History Relation Name Comments Arthritis Father Anesth Problems Maternal Aunt post op N&V severe Cancer Maternal Grandfather Prostat e cancer. Diabetes Maternal Grandfather No Known Problems Mother Arthritis Paternal Grandfather Cancer Paternal Grandmother Stroke Paternal Grandmother Vision Loss Paternal Grandmother Relation Name Status Comments Father Alive Maternal Aunt Alive Maternal Grandfather Maternal Grandmother Alive Mother Alive Paternal Grandfather Paternal Grandmother Social History Tobacco Use Types Packs/Day Years Used Date Smoking Tobacco: Never Smokeless Tobacco: Never Alcohol Use Standard Drinks/Week Comments Yes 0 (1 standard drink = 0.6 oz pur e alcohol) rarely PHQ-2 Answer Date Recorded PHQ-2 Score 0 01/22/2019 Sexually Active Control Partners Comments Yes Male Comments No Sex and Gender Information Value Date Recorded Sex Assigned at Not on file Legal Sex Female 12:51 PM EDT Gender Identity Not on file Sexual Orientation Not on file Occupation Industry Job Start Date Job End Date [employer] Not on file Not on file Not on file Obstetrics History Para Term AB IAB SAB Ectopic Multiple Livin g Live Births 6 5 1 2 1 1 5 3 Date Outcome GA Total Labor Labor/2nd/3rd Weight Sex Type Anes PTL Judie A1 A5 Name Clin Para Para SAB 011 Term 37w 0d 0h 02m 5 lb 12.1 oz (2.611 kg) F Vag-S pont Epidur al N Livin g 8 9 AMMER MAN,M ONCLIVE BABY A [facility] [facility] Delivery Location:[facility] 012 35w 2d 5 lb 13.8 oz (2.659 kg) F Vag-S pont Epidur al Y Livin g 8 8 AMMER MAN,M EDRIK BABY A Jeremias Turner MD Delivery Location:[facility] Comments:[id number] 014 36w 0d 6 lb 2.1 oz (2.781 kg) M Vag-S pont Epidur al Y Livin g 8 9 AMMER MAN,M DERIK BABY A Jeremias Turner MD Delivery Location:[facility] Comments:none Last Filed Vital Signs Vital Sign Reading Time Taken Comments Blood Pressure 116/64 09/09/2021 7:01 PM EDT Pulse 102 09/09/2021 7:01 PM EDT Temperature 36.3 C (97.3 F) 09/16/2020 11:20 PM EDT Respiratory Rate 14 09/09/2021 7:01 PM EDT Oxygen Saturation 98% 09/09/2021 7:01 PM EDT Inhaled Oxygen Concentration - - Weight 59 kg (130 lb) 09/09/2021 3:27 PM EDT Height 180.3 cm (5' 11 ) 09/16/2020 11:20 PM EDT Body Mass Index 18.13 09/16/2020 11:20 PM EDT Plan of Treatment Health Maintenance Due Date Last Done Comments Annual Wellness Exam 07/12/1987 Hepatitis B Vaccine (1 of 3 - 19+ 3-dose series) 07/12/2003 HPV/Pap Cotest 2014 Cervical Cancer Screening 09/22/2018 Pap Smear 09/22/2018 09/23/2015, 09/23/2015, 06/10/2013 COVID-19 Vaccine (2023-2 5 season) 2023 07/05/2021, 06/07/2021 DTaP/TDaP/Td (3 - Td or Tdap) 12/22/2023, 10/12/2011 Breast Cancer Screening 2024 Influenza Vaccine (#1) 2024 7, 12/21/2013 Meningococcal B Vaccine Aged Out No l onger eligible based on patient's age to complete this topic Pneumococcal Vaccine 0-49 Aged Out No longer eligible based on patient's age to complete this topic Goals Goal Patient Goal Type Associated Problems Recent Progress Patient-Stated? Author Maintain a healthy diet, exercise regularly and maintain an ideal body weight General No Shade Palmer MD Medical Devices Implanted Type Area Quad Stayer Device Identifier Shelf Expiration Date Model / Serial / Lot Stent Contour 6 X 24 #[id number] - [id number] Implanted:Qty: 1 on 09/05/2017 by Joe Chris MD at [facility] Stent Right: Ureter [employer]:MI[employer]OV[employer]: UROLOGY 05/28/2020 180-222 / / [id number] [employer] Impl Brst 12cm Chsv I Memorygel P4.8cm Hi Prfl Rnd Lety Gel - [id number] Implanted:Qty: 1 on 08/07/2018 by Asim Powers MD at [facility] Right: Breast MENTOR:AESTHETIC S PRDT 05/25/2023 [id number] / [id number] Description:surgeon brought own implants Impl Brst 12cm Chsv I Memorygel P4.8cm Hi Prfl Rnd Lety Gel - [id number] Implanted:Qty: 1 on 08/07/2018 by Asim Powers MD at [facility] Left: Breast MENTOR:AESTHETIC S PRDT 05/25/2023 [id number] / [id number] Description:surgeon brought own implants Insurance [employer] P[place] [facility] [place] [address] [address] Advance Directives For more information, please contact: [phone] * Full Code (Latest Code Status on File) Date Activated Date Inactivated Comments 12/03/2016 9:29 AM 12/03/2016 2:54 PM * Full Code Date Activated Date Inactivated Comments 12/20/2013 3:07 PM 12/22/2013 4:10 PM * Full Code Date Activated Date Inactivated Comments 10/12/2011 2:25 AM 10/14/2011 5:03 PM
[2024-09-25 15:38] LABS: RPR W/RFX Titers Nonreactive (Nonreactive)
[2024-09-26 03:36] LABS: Neisseria gonorrhoeae, NAA Negative (Negative)
[2024-09-26 06:13] LABS: Trichomonas Vaginalis, NAA Negative (Negative)
== END 2024-09-24 23:59 | disposition home or self-care (01) ==
LOC: LAB.DROPOF 09-25 11:54
PROVIDERS: PCP Nurse Practitioner; Visit Provider Nurse Practitioner
DX: Z11.59 Encounter for screening for other viral diseases (principal); Z20.2 Contact with and (suspected) exposure to infections with a predominantly sexual mode of transmission
CPT/HCPCS: 86592; 86803; 87389; 87491; 87529; 87591; 87661